=== PATIENT | male | born 1985 | race Caucasian/White ===

== ENCOUNTER 2021-09-18 07:10 | Emergency (ER) | payer OTHER ==
[~2021-09-18] VITALS: Ht 172.7 cm; Wt 113.4 kg
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
--- NOTE | 2021-09-18 07:25 | NUR ---
WOUND CARE DONE TO HEAD
[2021-09-18] MEDS ORDERED: HYDROCODONE/APAP 10/325MG TABLET PO ONE (07:30)
[2021-09-18] MEDS ORDERED: TDAP [DIPH/PERTUSSIS/TET] 0.5 ML VIAL IM ONE ×2 (07:30→07:45)
[2021-09-18] MEDS ORDERED: HYDROCODONE/APAP 10/325MG TABLET ONE (07:45)
--- NOTE | 2021-09-18 08:35 | NUR ---
TAKEN TO CT
--- NOTE | 2021-09-18 08:50 | NUR ---
PT RETURNED FROM CT VIA [facility]
[2021-09-18 09:44] VITALS: BP 122/70
--- NOTE | 2021-09-18 09:44 | NUR ---
Patient discharged to home in stable condition. Written and verbal after care instructions given. Patient verbalizes understanding of instruction.
== END 2021-09-18 09:46 | disposition home or self-care (01) ==
LOC: ER 07:12
DX: S62.002A Unspecified fracture of navicular [scaphoid] bone of left wrist, initial encounter for closed fracture (principal); S00.83XA Contusion of other part of head, initial encounter; W01.0XXA Fall on same level from slipping, tripping and stumbling without subsequent striking against object, initial encounter; Y93.51 Activity, roller skating (inline) and skateboarding; Y92.331 Roller skating rink as the place of occurrence of the external cause; Y99.8 Other external cause status
CPT/HCPCS: 70450-TC; 70486-TC; 73110; 90715